=== PATIENT | female | born 1990 | race African-American/Black ===

== ENCOUNTER 2020-11-20 05:14 | Emergency (ER) | payer OTHER ==
[~2020-11-20] VITALS: Ht 149.9 cm; Wt 68.0 kg
[~2020-11-20 05:14] MED LIST: PREN-96 PO
[2020-11-20] MEDS ORDERED: ONDANSETRON HCL 4 MG/2 ML VIAL IV ONE (05:30)
[2020-11-20] MEDS ORDERED: MORPHINE SULF INJ 2 MG/ML SYRINGE 1ML IV ONE (05:30)
[2020-11-20 06:01] VITALS: BP 145/91
[2020-11-20] MEDS ORDERED: cefTRIAXone W LIDOCAINE 1 GM IM IM ONE (07:00)
[2020-11-20] MEDS ORDERED: SILVER SULFADIAZINE 1 % TOPICAL CREAM 50GM TOP ONE (07:00)
[2020-11-20] MEDS ORDERED: cefTRIAXone SOD 1,000 MG VL ONE (07:26)
[2020-11-20] MEDS ORDERED: LIDOCAINE 2% (LOCAL ANESTH.) PF 5ml SDV ONE (07:26)
== END 2020-11-20 07:11 | disposition home or self-care (01) ==
LOC: ER 05:14
DX: T21.11XA Burn of first degree of chest wall, initial encounter (principal); X08.8XXA Exposure to other specified smoke, fire and flames, initial encounter; Y93.89 Activity, other specified; Y92.89 Other specified places as the place of occurrence of the external cause; Y99.8 Other external cause status
CPT/HCPCS: 96372; 96374; 96375; 99284; J0696; J2001; J2270; J2405